=== PATIENT | female | born 1960 | race Caucasian/White ===

== ENCOUNTER 2023-03-11 10:13 | Day surgery (SDC) | payer OTHER ==
[~2023-03-11] VITALS: Ht 172.7 cm; Wt 81.2 kg
[2023-03-11] MEDS ORDERED: diphenhydrAMINE 50 MG/ML VIAL ONE (11:39)
[2023-03-11] MEDS ORDERED: MIDAZOLAM 5 MG/5 ML VIAL ONE (11:39)
[2023-03-11] MEDS ORDERED: fentaNYL citrate 0.05 MG/ML VIAL ONE (11:39)
[2023-03-11] MEDS ORDERED: MIDAZOLAM 5 MG/5 ML VIAL IV ONE (13:10)
[2023-03-11] MEDS ORDERED: fentaNYL citrate 0.05 MG/ML VIAL IVP ONE (13:10)
== END 2023-03-11 13:25 | disposition home or self-care (01) ==
LOC: MDS 10:13 → MMU 10:34 → MDS 13:25
PROVIDERS: ATTEND Internal Medicine Gastroenterology
DX: Z12.11 Encounter for screening for malignant neoplasm of colon (principal); D12.2 Benign neoplasm of ascending colon; R13.10 Dysphagia, unspecified; Z86.010 Personal history of colon polyps; Z80.0 Family history of malignant neoplasm of digestive organs; K21.9 Gastro-esophageal reflux disease without esophagitis; A00.0 Cholera due to Vibrio cholerae 01, biovar cholerae; E78.5 Hyperlipidemia, unspecified; J45.909 Unspecified asthma, uncomplicated; Z88.0 Allergy status to penicillin; Z88.1 Allergy status to other antibiotic agents; Z88.5 Allergy status to narcotic agent; Z79.899 Other long term (current) drug therapy
CPT/HCPCS: 43235; 45381; 45385; 88305; J2250; J3010; J1200

== ENCOUNTER 2023-12-23 09:35 | Day surgery (SDC) | payer OTHER ==
[~2023-12-23] VITALS: Ht 172.7 cm; Wt 79.8 kg
[2023-12-23] MEDS ORDERED: fentaNYL citrate 0.05 MG/ML VIAL ONE (11:48)
[2023-12-23] MEDS ORDERED: LIDOCAINE 2% 100 MG/5 ML UJET TP ONE (11:48)
[2023-12-23] MEDS: fentaNYL citrate 0.05 MG/ML VIAL IVP ONE (12:04)
== END 2023-12-23 13:00 | disposition home or self-care (01) ==
LOC: MDS 09:35 → MMU 09:48 → MDS 13:00
PROVIDERS: ATTEND Internal Medicine Gastroenterology
DX: Z09 Encounter for follow-up examination after completed treatment for conditions other than malignant neoplasm (principal); K63.5 Polyp of colon; K57.30 Diverticulosis of large intestine without perforation or abscess without bleeding; I10 Essential (primary) hypertension; J45.909 Unspecified asthma, uncomplicated; Z90.710 Acquired absence of both cervix and uterus; Z86.010 Personal history of colon polyps; Z88.0 Allergy status to penicillin; Z88.5 Allergy status to narcotic agent; Z88.2 Allergy status to sulfonamides; Z79.899 Other long term (current) drug therapy; Z98.890 Other specified postprocedural states
CPT/HCPCS: 45385; J3010